=== PATIENT | female | born 1980 | race Caucasian/White ===

== ENCOUNTER 2017-07-21 11:29 | Emergency (ER) | payer MEDICAID ==
[2017-07-21] MEDS: METOCLOPRAMIDE 10 MG INJ IV (12:23)
[2017-07-21] MEDS: KETOROLAC 30 MG INJ IV (12:23)
[2017-07-21] MEDS: DIPHENHYDRAMINE 50 MG INJ IV (12:23)
[2017-07-21 12:54] LABS: ADD UMIC YES; UR AMORPHOUS CRYSTAL FEW /HPF (NONE SEEN); UR ASCORBIC ACID NEGATIVE (NEGATIVE); UR BACTERIA FEW /HPF (NONE SEEN); UR BILIRUBIN (Dip) NEGATIVE (NEGATIVE); UR BLOOD (Dip) NEGATIVE (NEGATIVE); UR CLARITY CLOUDY (CLEAR); UR COLOR YELLOW (YELLOW); UR GLUCOSE (Dip) NEGATIVE (NEGATIVE); UR KETONES (Dip) NEGATIVE (NEGATIVE); UR LEUKOCYTE ESTERASE (Dip) NEGATIVE Leu/ul (NEGATIVE); UR MUCUS FEW /HPF (NONE SEEN); UR NITRITE (Dip) NEGATIVE (NEGATIVE); UR RBC 0 /HPF (0-5); UR SPECIFIC GRAVITY (Dip) 1.017 (1.003-1.030); UR SQUAMOUS EPITHELIAL CELL FEW /HPF (FEW); UR TOTAL PROTEIN (Dip) NEGATIVE (NEGATIVE); UR UROBILINOGEN (Dip) NEGATIVE (NEGATIVE); UR WBC 5 /HPF (0-5)
== END 2017-07-21 14:45 | disposition home or self-care (01) ==
LOC: FTE 11:29
DX: R51 Headache (principal); J45.909 Unspecified asthma, uncomplicated
CPT/HCPCS: 36415; 81001; 96374; 96375; 99284-25

== ENCOUNTER 2017-07-29 03:11 | Emergency (ER) | payer MEDICAID | END 2017-07-29 08:12 | disposition home or self-care (01) | LOC: FTE 03:11 | DX: K08.89 Other specified disorders of teeth and supporting structures (principal); J45.909 Unspecified asthma, uncomplicated | CPT/HCPCS: 99283; Z7502 ==

== ENCOUNTER 2017-09-17 15:22 | Emergency (ER) | payer MEDICAID ==
[2017-09-17] MEDS: HYDROCODONE/APAP (10/325) TAB PO (18:30)
== END 2017-09-17 19:46 | disposition home or self-care (01) ==
LOC: FTE 15:22
DX: S46.911A Strain of unspecified muscle, fascia and tendon at shoulder and upper arm level, right arm, initial encounter (principal); J45.909 Unspecified asthma, uncomplicated; X58.XXXA Exposure to other specified factors, initial encounter; Y92.9 Unspecified place or not applicable
CPT/HCPCS: 73030; 73030-RT; 99283-25

== ENCOUNTER 2017-10-17 00:04 | Emergency (ER) | payer MEDICAID | END 2017-10-17 04:02 | disposition home or self-care (01) | LOC: FTE 00:04 | DX: J30.89 Other allergic rhinitis (principal); H10.13 Acute atopic conjunctivitis, bilateral | CPT/HCPCS: 93005; 99284 ==

== ENCOUNTER 2018-02-03 11:42 | Emergency (ER) | payer MEDICAID ==
[2018-02-03 12:23] LABS: ADD MAN DIFF? NO
[2018-02-03 12:24] LABS: BASOPHILS % 0.6 % (0.0-2.0); EOSINOPHILS # 0.2 10^3/ul (0.0-0.5); EOSINOPHILS % 2.1 % (0.0-7.0); HEMATOCRIT 38.1 % (37.0-47.0); HEMOGLOBIN 13.1 g/dl (12.0-16.0); LYMPHOCYTES # 2.6 10^3/ul (0.8-2.9); LYMPHOCYTES % 36.7 % (15.0-51.0); MEAN CORPUSCULAR HEMOGLOBIN 28.9 pg (29.0-33.0); MEAN CORPUSCULAR HGB CONC 34.4 g/dl (32.0-37.0); MEAN CORPUSCULAR VOLUME 83.9 fl (82.0-101.0); MONOCYTE # 0.4 10^3/ul (0.3-0.9); NEUTROPHIL # 3.9 10^3/ul (1.6-7.5); NEUTROPHILS % 54.3 % (39.0-77.0); PLATELET COUNT 350 10^3/UL (140-415); RED BLOOD COUNT 4.54 10^6/ul (4.20-5.40); RED CELL DISTRIBUTION WIDTH 12.7 % (11.5-14.5)
[2018-02-03 12:24] LABS: WHITE BLOOD COUNT 7.1 10^3/ul (4.8-10.8)
[2018-02-03 12:41] LABS: ALANINE AMINOTRANSFERASE 31 IU/L (13-69); ALBUMIN 4.3 g/dl (3.3-4.9); ALKALINE PHOSPHATASE 91 IU/L (42-121); ANION GAP 12 (8-16); ASPARTATE AMINO TRANSFERASE 26 IU/L (15-46); BILIRUBIN,INDIRECT 0.7 mg/dl (0-1.1); BILIRUBIN,TOTAL 0.7 mg/dl (0.2-1.3); BLOOD UREA NITROGEN 11 mg/dl (7-20); CALCIUM 9.3 mg/dl (8.4-10.2); CARBON DIOXIDE 26 mmol/L (21-31); CHLORIDE 107 mmol/L (97-110); CREATININE 0.65 mg/dl (0.44-1.00); GLUCOSE 106 mg/dl (70-220); SODIUM 141 mmol/L (135-144); TOTAL PROTEIN 8.2 g/dl (6.1-8.1)
[2018-02-03] MEDS: LORAZEPAM 0.5 MG TAB PO (12:47)
[2018-02-03 12:53] LABS: TROPONIN-I < 0.010 ng/ml (0.000-0.120)
== END 2018-02-03 13:30 | disposition home or self-care (01) ==
LOC: FTE 11:42
DX: R07.89 Other chest pain (principal); F41.9 Anxiety disorder, unspecified; J45.909 Unspecified asthma, uncomplicated
CPT/HCPCS: 71045; 80053; 84484; 85025; 93005; 99285-25